=== PATIENT | male | born 1960 | race Caucasian/White ===

== ENCOUNTER 2016-08-18 02:36 | Emergency (ER) | payer BC ==
--- NOTE | 2016-08-18 03:27 | EDM.PDOC ---
ED HPI GENERAL MEDICAL PROBLEM - General Chief Complaint: General Stated Complaint: weakness, fever, chest discomfort Time Seen by Provider: 08/18/16 03:22 Source of Information: Reports: Patient History Limitations: Reports: No limitations - History of Present Illness INITIAL COMMENTS - FREE TEXT/NARRATIVE: 2.5 days of fevers, aches, mild cough. Has about 1 day of mild chest pressure. Onset: other (as above) Location: Reports: generalized Quality: Reports: Ache (all over) Severity: moderate Improves with: Reports: None Worsens with: Reports: None Associated Symptoms: Reports: chest pain (as above), cough, diaphoresis, fever/ chills, weakness. Denies: nausea/vomiting, rash, shortness of breath Chest Pain Score (Numeric/FACES): 1 - Related Data Allergies Allergy/AdvReac Type Severity Reaction Status Date / Time No Known Allergies Allergy Verified 08/18/16 02:38 Home Meds: Home Meds Aspirin [Ecotrin] 81 mg PO DAILY 06/17/16 [History] Past Medical History HEENT History: Reports: Cataract Cardiovascular History: Reports: Pacemaker - Infectious Disease History Infectious Disease History: Reports: Chicken pox, Measles, Mumps - Past Surgical History HEENT Surgical History: Reports: Cataract surgery Social & Family History - Tobacco Use Smoking Status *Q: Former Smoker Years of Tobacco use: 20 Used Tobacco, but Quit: Yes Month Tobacco Last Used: 1 - Caffeine Use Caffeine Use: Reports: Coffee, Energy drinks, Soda, Tea - Recreational Drug Use Recreational Drug Use: No ED ROS GENERAL - Review of Systems Review Of Systems: See Below Constitutional: Reports: fever, chills, fatigue, diaphoresis HEENT: Reports: No symptoms Respiratory: Reports: Cough (dry) Cardiovascular: Reports: Chest pain (mild as above), Other (pacer for occassional slow heart rate. no known CAD). Denies: Palpitations Endocrine: Reports: no symptoms GI/Abdominal: Reports: No symptoms : Reports: no symptoms Musculoskeletal: Reports: other (aches all over) Neurological: Reports: No Symptoms Psychiatric: Reports: No symptoms Hematologic/Lymphatic: Reports: no symptoms Immunologic: Reports: no symptoms ED EXAM, GENERAL - Physical Exam Exam: See Below Exam Limited By: No limitations General Appearance: alert, WD/WN, no apparent distress, other (pale, mild diaphoresis) Eye Exam: bilateral eye: EOMI, PERRL Ears: normal external exam, hearing grossly normal Nose: normal inspection, normal mucosa, no blood Throat/Mouth: Normal inspection, Normal oropharynx (except mild redness) Head: atraumatic, normocephalic Neck: normal inspection, supple, non-tender, full range of motion Respiratory/Chest: no respiratory distress, lungs clear, normal breath sounds, no accessory muscle use Cardiovascular: normal peripheral pulses, regular rate, rhythm, no murmur Peripheral Pulses: 4+: radial (L), radial (R) GI/Abdominal: soft, non tender, no organomegaly, no distention Back Exam: normal inspection, full range of motion. No: CVA tenderness (L), CVA tenderness (R) Extremities: normal range of motion, non-tender, no pedal edema, normal capillary refill Neurological: alert, oriented, CN II-XII intact, normal cognition, normal gait, no motor/sensory deficits Psychiatric: normal affect, normal mood Skin Exam: Warm, No rash, Diaphoretic, Pallor Lymphatic: no adenopathy EKG INTERPRETATION EKG Date: 08/18/16 Time: 02:45 Rhythm: NSR [place]: normal P-wave: present QRS: normal ST-T: normal QT: normal Course - Vital Signs Last Recorded V/S: Last Vital Signs Temp 37.8 C 08/18/16 03:15 Pulse 102 H 08/18/16 03:15 Resp 22 H 08/18/16 03:15 BP 126/69 08/18/16 03:15 Pulse Ox 96 08/18/16 03:15 - Orders/Labs/Meds Orders: Active Orders 24 hr Category Date Time Status Chest 2V [CR] Routine Exams 08/18/16 03:00 Taken Labs: Laboratory Tests 08/18/16 08/18/16 08/18/16 Range/Units 03:00 03:00 03:00 WBC 6.5 (4.0-10.2) K/uL RBC 4.85 (4.33-5.41) M/uL Hgb 14.9 (13.1-16.8) g/dL Hct 42.9 (39.0-49.0) % MCV 88.5 (84.0-98.0) fL MCH 30.7 (28.2-33.3) pg MCHC 34.7 (31.7-36.0) g/dL RDW 13.5 (11.2-14.1) % Plt Count 156 (150-350) K/uL Neut % (Auto) 74.0 (45.0-80.0) % Lymph % (Auto) 8.6 L (10.0-50.0) % [place] % (Auto) 15.1 H (2.0-14.0) % Eos % (Auto) 1.5 (0.0-5.0) % Baso % (Auto) 0.8 (0.0-2.0) % Neut # (Auto) 4.81 (1.40-7.00) K/uL Lymph # (Auto) 0.56 (0.50-3.50) K/uL [place] # (Auto) 0.98 (0.00-1.00) K/uL Eos # (Auto) 0.10 (0.00-0.50) K/uL Baso # (Auto) 0.05 (0.00-0.20) K/uL Sodium 136 (136-145) mmol/L Potassium 3.8 (3.5-5.1) mmol/L Chloride 103 (98-107) mmol/L Carbon Dioxide 23.9 (21.0-32.0) mmol/L BUN 20 H (7-18) mg/dL Creatinine 1.19 H (0.51-1.17) mg/dL Est Cr Clr Drug Dosing TNP Estimated GFR (MDRD) > 60 mL/min Glucose 129 H (74-106) mg/dL Lactic Acid 0.7 (0.4-2.0) mmol/L Calcium 8.0 L (8.5-10.1) mg/dL Total Bilirubin 0.3 (0.2-1.0) mg/dL AST 27 (15-37) U/L ALT 38 (12-78) U/L Alkaline Phosphatase 88 (46-116) IU/L Troponin I 0.000 (0.000-0.056) ng/mL [id number]-[id number] Pept 208 H (0-125) pg/mL Total Protein 7.4 (6.4-8.2) g/dL Albumin 3.6 (3.4-5.0) g/dL - Re-Assessments/Exams Free Text/Narrative Re-Assessment/Exam: 08/18/16 03:32 improved and better color after fluids Departure - Departure Time of Disposition: 03:29 Disposition: Home, Self-Care 01 Condition: good Clinical Impression: Influenza B, Dehydration Forms: ED Department Discharge - Problem List Review Problem List Initiated/Reviewed/Updated: No - My Orders Last 24 Hours: My Active Orders 08/18/16 03:00 Chest 2V [CR] Routine - Assessment/Plan Last 24 Hours: My Active Orders 08/18/16 03:00 Chest 2V [CR] Routine Assessment:: 1. Influenza B 2. negative w/u otherwise 3. Mild Dehydation Plan: 1. Unfortunately patient presents too late for Tamiflu to be of use. 2. Rest, fluids, Advil for aches and fever, tylenol for fever 3. F/U for fevers beyond another 5 days.
[2016-08-18 03:28] LABS: CHLORIDE,CL 103 mmol/L (98-107); SODIUM,NA 136 mmol/L (136-145)
[2016-08-18] MEDS ORDERED: Ibuprofen 600 MG Tab PO ONE (03:43)
[2016-08-18] MEDS ORDERED: Sodium Chloride 0.9% 500 ML IV SCH (03:45)
[2016-08-18] MEDS ORDERED: Sodium Chloride 0.9% 1,000 ML IV ONE (03:53)
[2016-08-18 05:34] VITALS: BP 133/74
== END 2016-08-18 05:00 | disposition home or self-care (01) ==
LOC: LL.ED 02:36
DX: J10.1 Influenza due to other identified influenza virus with other respiratory manifestations (principal); E86.0 Dehydration; Z79.82 Long term (current) use of aspirin; Z87.891 Personal history of nicotine dependence
CPT/HCPCS: 36415; 71020; 80053; 83605; 83880; 84484; 85025; 87804; 93005; 96360; 99284; A9270; J7030; J7040

== ENCOUNTER 2016-08-21 07:49 | Emergency (ER) | payer BC ==
--- NOTE | 2016-08-21 08:29 | EDM.PDOC ---
ED HPI GENERAL MEDICAL PROBLEM - General Chief Complaint: General Stated Complaint: "low grade fever and phlegm cannot cough up" Time Seen by Provider: 08/21/16 08:05 Source of Information: Reports: Patient, Old records ([facility] chart/EMR) History Limitations: Reports: No limitations - History of Present Illness INITIAL COMMENTS - FREE TEXT/NARRATIVE: The patient drove himself to the emergency room for evaluation of persistent and somewhat progressive flu-type symptoms with initial diagnosis of influenza B in this facility on 08/18. The patient has had a productive brownish productive cough since 08/15 with persistent mild fever and chills and temperature of 99.0 at 4 a.m. this morning. He has been taking ibuprofen at 200 mg by mouth every 4 hours when necessary with last dose more than 6 hours ago. He has had some mild GI intolerance to the ibuprofen, although symptoms improve with very occasional OTC antacid use. Patient has not used any other medications including cold and cough preparations, etc.. No recent history of other abdominal pain, heartburn, nausea, diarrhea, melena, gross hematochezia, or any food intolerance, including fatty foods, etc.. He has had some nonspecific bilateral anterior burning of his chest with coughing, however no true pleurisy-type symptoms. The patient denies any other chest pain/pressure, heart flutter, dizziness, orthostasis, orthopnea, diaphoresis, paresthesias, recent decreased exercise tolerance, or any other anginal-type symptoms. Onset: gradual Onset Date: 08/15/16 Duration: Constant, Getting worse Location: Reports: chest. Denies: head, face, neck, abdomen, back, pelvis, upper extremity, left, upper extremity, right Quality: Reports: Burning Severity: mild Improves with: Reports: Rest Worsens with: Reports: Movement (Coughing) Context: Reports: Other (As above) Associated Symptoms: Reports: chest pain (No specific pleurisy), cough w sputum (Brown sputum), fever/chills. Denies: confusion, cough, diaphoresis, headaches , loss of appetite, malaise, nausea/vomiting, rash, seizure, shortness of breath , syncope, weakness Treatments DETASSELER: Reports: NSAIDS. Denies: Other medication(s) Bilateral Lower Anterior Chest Pain Score (Numeric/FACES): 2 - Related Data Allergies Allergy/AdvReac Type Severity Reaction Status Date / Time No Known Allergies Allergy Verified 08/21/16 08:03 Home Meds: Home Meds Aspirin [Ecotrin] 81 mg PO DAILY 06/17/16 [History] Guaifenesin/Pseudoephedrne HCl [Mucinex D ER Tablet] 1 each PO Q12H #20 tab.er.12h 08/21/16 [Rx] Past Medical History HEENT History: Reports: Cataract Cardiovascular History: Reports: Arrhythmia, Hypertension, Pacemaker, Syncope, Other (see below) Other Cardiovascular History: Syncopal episode secondary to short term severe bradycardia and borderline asystole on 01/10/03 with subsequent pacemaker placement in December 2002. hypertension currently not under therapy Respiratory History: Reports: COPD, Sleep apnea, Other (see below) Other Respiratory History: COPD by chest x-ray on 08/21/06. Patient does not use CPAP at home Gastrointestinal History: Reports: GERD Genitourinary History: Reports: Renal calculus Musculoskeletal History: Reports: Osteoarthritis - Infectious Disease History Infectious Disease History: Reports: Chicken pox, Measles, Mumps - Past Surgical History HEENT Surgical History: Reports: Cataract surgery Cardiovascular Surgical History: Reports: Pacer, Other (see below) Other Cardiovascular Surgeries/Procedures: Pacemaker secondary to syncope, etc. as above in December 2002 Social & Family History - Family History Cardiac: Reports: Arrhythmia, Pacemaker, Syncope, Other (see below) Other Cardiac Family History: Father and uncles with history of syncope of unknown etiology with 2 brothers requiring a pacemaker for unknown etiology Endocrine/Metabolic: Reports: Hypothyroidism, Other (see below) Other Endocrine/Metabolic Family History: Mother with goiter - Tobacco Use Smoking Status *Q: Former Smoker Years of Tobacco use: 32 (Smoked cigarettes between ages 17 and 49) Packs/Tins Daily: 1 (Some use of 1.5 packs per day) Used Tobacco, but Quit: Yes Month Tobacco Last Used: As above Smoking Cessation Information Provided To Patient: No - Caffeine Use Caffeine Use: Reports: Coffee (2 cups per day), Soda (6 sodas per day). Denies : Energy drinks (Previous use but not recently), Tea - Alcohol Use Alcohol Use History: No Days Per Week of Alcohol Use: 0 (No previous DWIs, problems with alcohol abuse, etc.) Alcohol Use in Last Twelve Months: No - Recreational Drug Use Recreational Drug Use: No Drug Use in Last 12 Months: No Recreational Drug Type: Denies: Amphetamines (Speed), Cocaine, Heroin, Inhalants (Glues, Solvents, Aerosols), LSD (Acid), Marijuana/Hashish, Methamphetamine, Morphine - Living Situation & Occupation Occupation: employed ([employer]) ED ROS GENERAL - Review of Systems Review Of Systems: See Below Constitutional: Reports: fever, chills, night sweats. Denies: weakness, fatigue , diaphoresis, decreased appetite, weight loss, weight gain HEENT: Reports: Rhinitis (Clear), Throat pain (Minimal). Denies: Contact Lenses , Dental pain, Ear discharge, Ear pain, Eye discharge, Eye pain, Glasses, Sinus problem, Throat swelling, Vertigo, Vision change Respiratory: Reports: Cough, Sputum. Denies: Shortness of Breath, Wheezing, Pleuritic Chest Pain Cardiovascular: Reports: Chest pain (As above). Denies: Blood pressure problem , Claudication, Dyspnea on exertion, Edema, Lightheadedness, Palpitations, PND, Syncope Endocrine: Reports: no symptoms. Denies: fatigue GI/Abdominal: Reports: Abdominal pain (Secondary to NSAIDs). Denies: Anorexia, Black stool, Bloody stool, Constipation, Diarrhea, Decreased appetite, Difficulty swallowing, Distension, Flatus, Hematochezia, Melena, Nausea, Stool incontinence, Vomiting : Reports: no symptoms. Denies: discharge, dysuria, flank pain, frequency, hematuria, incontinence, pain, urgency, urinary retention Musculoskeletal: Reports: no symptoms. Denies: neck pain, shoulder pain, arm pain, back pain, leg pain Skin: Reports: no symptoms. Denies: diaphoresis Neurological: Reports: No Symptoms. Denies: Confusion, Dizziness, Headache, Numbness, Paresthesia, Syncope, Tingling, Weakness Psychiatric: Reports: No symptoms. Denies: Agitation, Anxiety, Confusion, Depression Hematologic/Lymphatic: Reports: no symptoms Immunologic: Reports: no symptoms ED EXAM, GENERAL - Physical Exam Exam: See Below Exam Limited By: No limitations Eye Exam: bilateral eye: EOMI, normal inspection (No nystagmus), PERRL Ears: normal external exam, normal canal, hearing grossly normal, normal TMs Nose: normal inspection, normal mucosa, no blood, clear rhinorrhea (Borderline bilaterally) Throat/Mouth: Normal inspection, Normal lips, Normal teeth, Normal gums, Normal oropharynx, Normal voice, No airway compromise. No: Dysphagia, Inflammation Head: atraumatic, normocephalic. No: facial swelling, facial tenderness, sinus tenderness Neck: normal inspection, supple, non-tender, full range of motion. No: lymphadenopathy (L), lymphadenopathy (R), thyromegaly Respiratory/Chest: no respiratory distress, lungs clear, normal breath sounds, no accessory muscle use, chest non-tender. No: pleural rub, retractions Cardiovascular: normal peripheral pulses, regular rate, rhythm, no edema, no gallop, no JVD, no murmur, no rub. No: gallop/S3, gallop/S4, friction rub Peripheral Pulses: 4+: radial (L), radial (R) GI/Abdominal: normal bowel sounds, soft, non tender, no organomegaly, no distention, no abnormal bruit, no mass, other (Obese). No: guarding (Male) Exam: Deferred Rectal (Males) Exam: Deferred Back Exam: normal inspection, full range of motion. No: CVA tenderness (L), CVA tenderness (R), muscle spasm Extremities: normal inspection, normal range of motion, non-tender, no pedal edema, normal capillary refill. No: pedal edema Neurological: alert, oriented, CN II-XII intact, normal cognition, normal gait, no motor/sensory deficits Psychiatric: normal affect, normal mood Skin Exam: Warm, Dry, Intact, Normal color, No rash. No: Diaphoretic, Ecchymosis Lymphatic: no adenopathy Course - Vital Signs Last Recorded V/S: Last Vital Signs Temp 37.2 C 08/21/16 09:59 Pulse 79 08/21/16 09:59 Resp 20 08/21/16 09:59 BP 122/66 08/21/16 09:59 Pulse Ox 98 08/21/16 09:59 Vital Signs - 24 hr 08/21/16 08/21/16 07:53 09:59 Temperature [ 37.2 C 37.2 C Oral] Pulse, 82 79 Peripheral [ Right Pulse Oximetry] Respiratory 18 20 Rate Blood Pressure 122/76 122/66 [Left Upper Arm ] O2 Sat by Pulse 93 L 98 Oximetry - Orders/Labs/Meds Orders: Active Orders 24 hr Category Date Time Status Chest 2V [CR] Urgent Exams 08/21/16 08:29 Taken CULTURE STREP A CONFIRMATION [RM] Stat Lab 08/21/16 08:29 Results STREP SCRN A RAPID W CULT CONF [RM] Stat Lab 08/21/16 08:29 Results Obtain Past Medical Record [OM.PC] Routine Oth 08/21/16 08:29 Active Labs: Laboratory Tests 08/21/16 08/21/16 Range/Units 08:45 08:45 WBC 5.2 (4.0-10.2) K/uL RBC 4.83 (4.33-5.41) M/uL Hgb 14.9 (13.1-16.8) g/dL Hct 43.5 (39.0-49.0) % MCV 90.1 (84.0-98.0) fL MCH 30.8 (28.2-33.3) pg MCHC 34.3 (31.7-36.0) g/dL RDW 13.5 (11.2-14.1) % Plt Count 168 (150-350) K/uL Neut % (Auto) 66.1 (45.0-80.0) % Lymph % (Auto) 20.5 (10.0-50.0) % [place] % (Auto) 12.6 (2.0-14.0) % Eos % (Auto) 0.6 (0.0-5.0) % Baso % (Auto) 0.2 (0.0-2.0) % Neut # (Auto) 3.42 (1.40-7.00) K/uL Lymph # (Auto) 1.06 (0.50-3.50) K/uL [place] # (Auto) 0.65 (0.00-1.00) K/uL Eos # (Auto) 0.03 (0.00-0.50) K/uL Baso # (Auto) 0.01 (0.00-0.20) K/uL Sodium 141 (136-145) mmol/L Potassium 4.4 (3.5-5.1) mmol/L Chloride 104 (98-107) mmol/L Carbon Dioxide 28.0 (21.0-32.0) mmol/L BUN 16 (7-18) mg/dL Creatinine 1.16 (0.51-1.17) mg/dL Est Cr Clr Drug Dosing TNP Estimated GFR (MDRD) > 60 mL/min Glucose 132 H (74-106) mg/dL Calcium 8.5 (8.5-10.1) mg/dL Total Bilirubin 0.5 (0.2-1.0) mg/dL AST 29 (15-37) U/L ALT 42 (12-78) U/L Alkaline Phosphatase 76 (46-116) IU/L Total Protein 7.4 (6.4-8.2) g/dL Albumin 3.5 (3.4-5.0) g/dL Microbiology 08/21/16 08:29 Group A Streptococcus Rapid Screen - Final Throat NEGATIVE STREP A SCREEN Meds: None - Radiology Interpretation Free Text/Narrative:: Chest x-ray, PA and lateral, shows no evidence of pulmonary infiltrates pneumothorax, cardiomegaly, etc. Mild to moderate COPD changes with probable pulmonary hypertension and possible borderline centralized CHF. Pacemaker noted. Moderate osteoarthritic changes in the thoracic spine Departure - Departure Time of Disposition: 10:15 Disposition: Home, Self-Care 01 Condition: good Clinical Impression: Influenza B, Peptic reflux disease Sleep apnea Qualifiers: Sleep apnea type: other type Qualified Code(s): G47.39 - Other sleep apnea COPD (chronic obstructive pulmonary disease) Qualifiers: COPD type: emphysema Emphysema type: panlobular Qualified Code(s): J43.1 - Panlobular emphysema Hypertension Qualifiers: Hypertension type: essential hypertension Qualified Code(s): I10 - Essential ( primary) hypertension Prescriptions: Guaifenesin/Pseudoephedrne HCl [Mucinex D ER Tablet] 1 each PO Q12H #20 tab.er.12h Instructions: Influenza, Adult, [id number] Referrals: PCP,Unknown [Primary Care Provider] - Forms: ED Department Discharge Additional Instructions: 1. Followup with your regular provider in 7-10 days as directed. 2. Discuss possibility of lung function test/PFTs with regular provider once current symptoms have resolved 3. Strict compliance with CPAP as discussed 4. Congratulations about stopping smoking 5. Yearly influenza boosters as discussed/recommended 6. Work excuse- See Form 7. Hygiene issues as discussed 8. Continue to observe your blood pressures closely through your regular provider 9. Tylenol 650 mg by mouth every 4 hours and/or OTC ibuprofen 2-3 tabs by mouth every 6 hours with food as directed./needed. 10. OTC Prilosec 20 mg by mouth every morning and/or twice a day while on ibuprofen. Consider H. pylori evaluations at followup 11. OTC Sudafed as needed per labeled instructions. - Problem List & Annotations (1) Influenza B SNOMED Code(s): 40313235 Code(s): J10.1 - FLU DUE TO OTH IDENT INFLUENZA VIRUS W OTH RESP MANIFEST Status: Acute Priority: High Current Visit: Yes Onset Date: ~08/15/16 Annotation/Comment:: Leidy work excuse provided with extension of his work excuse until 08/28/16. Various therapeutic options were discussed with the patient not wishing to have IM Depo-Medrol injection at this time. Symptomatic relief as per discharge instructions. Yearly influenza boosters recommended. Hygiene issues discussed. (2) COPD (chronic obstructive pulmonary disease) SNOMED Code(s): 15944723 Code(s): J44.9 - CHRONIC OBSTRUCTIVE PULMONARY DISEASE, UNSPECIFIED Status : Chronic Priority: Medium Current Visit: Yes Onset Date: ~08/21/16 Annotation/Comment:: COPD changes by today's chest x-ray. Stable without current medical therapy. PFTs recommended as per discharge instruction. The patient was congratulated about smoking cessation Qualifiers: COPD type: emphysema Emphysema type: panlobular Qualified Code(s): J43.1 - Panlobular emphysema (3) Hypertension SNOMED Code(s): 05300430 Code(s): I10 - ESSENTIAL (PRIMARY) HYPERTENSION Status: Chronic Priority : Medium Current Visit: Yes Annotation/Comment:: Blood pressures under good control in the emergency room. Continue to observe closely by his regular providers Qualifiers: Hypertension type: essential hypertension Qualified Code(s): I10 - Essential (primary) hypertension (4) Peptic reflux disease SNOMED Code(s): 67351078 Code(s): K21.9 - GASTRO-ESOPHAGEAL REFLUX DISEASE WITHOUT ESOPHAGITIS Status: Acute Priority: Medium Current Visit: Yes Annotation/Comment:: Note mild intolerance to NSAIDs as per today's history. Consider H. pylori, further GI workup, etc. Prilosec coverage while on ibuprofen (5) Sleep apnea SNOMED Code(s): 95741383 Code(s): G47.30 - SLEEP APNEA, UNSPECIFIED Status: Chronic Priority: Medium Current Visit: Yes Annotation/Comment:: Patient has long been noncompliant with his CPAP. Strict compliance with CPAP therapy strongly recommended Qualifiers: Sleep apnea type: other type Qualified Code(s): G47.39 - Other sleep apnea - Problem List Review Problem List Initiated/Reviewed/Updated: Yes - My Orders Last 24 Hours: My Active Orders 08/21/16 08:29 Chest 2V [CR] Urgent CULTURE STREP A CONFIRMATION [RM] Stat STREP SCRN A RAPID W CULT CONF [RM] Stat Obtain Past Medical Record [OM.PC] Routine - Assessment/Plan Last 24 Hours: My Active Orders 08/21/16 08:29 Chest 2V [CR] Urgent CULTURE STREP A CONFIRMATION [RM] Stat STREP SCRN A RAPID W CULT CONF [RM] Stat Obtain Past Medical Record [OM.PC] Routine Assessment:: As above Plan: As above. Extensive precautions were given to the patient, who is in agreement with the treatment plan. See Patient Instructions for further treatment and plan.
[2016-08-21 09:08] LABS: CHLORIDE,CL 104 mmol/L (98-107); SODIUM,NA 141 mmol/L (136-145)
[2016-08-21 10:00] VITALS: BP 122/66
== END 2016-08-21 10:15 | disposition home or self-care (01) ==
LOC: LL.ED 07:49
DX: J11.1 Influenza due to unidentified influenza virus with other respiratory manifestations (principal); Z79.82 Long term (current) use of aspirin; Z95.0 Presence of cardiac pacemaker; J43.1 Panlobular emphysema; G47.30 Sleep apnea, unspecified; M19.90 Unspecified osteoarthritis, unspecified site; K21.9 Gastro-esophageal reflux disease without esophagitis; Z87.891 Personal history of nicotine dependence; I10 Essential (primary) hypertension
CPT/HCPCS: 36415; 71020; 80053; 85025; 87081; 87430; 99284

== ENCOUNTER 2016-08-28 22:36 | Emergency (ER) | payer BC ==
[2016-08-28 22:40] VITALS: BP 125/79
--- NOTE | 2016-08-28 22:47 | EDM.PDOC ---
ED HPI GENERAL MEDICAL PROBLEM - General Chief Complaint: General Stated Complaint: congestion, cough Time Seen by Provider: 08/28/16 22:40 Source of Information: Reports: Patient, Old records ([facility] chart/EMR), Other (Friend/roommate) History Limitations: Reports: No limitations - History of Present Illness INITIAL COMMENTS - FREE TEXT/NARRATIVE: The patient was brought to the emergency room via private automobile by his roommate/friend for evaluation of a sudden onset coughing spell with some secondary gagging but no emesis with symptoms starting at about 20:00 hours this evening. The patient did take 200 mg of ibuprofen and 1 tablet of Mucinex DM about one half hour prior to arrival. Note that he has just recently recovered from an influenza B infection patient essentially nonsymptomatic during the last 3 days. He denies any recent fever or other known exposure to infection. He also did try taking some cough drops earlier this evening. No recent history of abdominal pain, heartburn, nausea, diarrhea, melena, gross hematochezia, or any food intolerance, including fatty foods, etc.. He denies any pain Onset: today, sudden Onset Date: 08/28/16 Onset Time: 20:00 Duration: Intermittent, Improving Improves with: Reports: None Worsens with: Reports: None Context: Reports: Other (As above) Associated Symptoms: Reports: cough. Denies: confusion, chest pain, cough w sputum, diaphoresis, fever/chills, headaches, loss of appetite, malaise, nausea/ vomiting, shortness of breath, weakness - Related Data Allergies Allergy/AdvReac Type Severity Reaction Status Date / Time No Known Allergies Allergy Verified 08/28/16 22:38 Home Meds: Home Meds Aspirin [Ecotrin] 81 mg PO DAILY 06/17/16 [History] guaiFENesin/Dextromethorphan [Mucinex DM ER 1,200-60 MG] 1 tab PO BID 08/28/16 [ History] Past Medical History HEENT History: Reports: Cataract Cardiovascular History: Reports: Arrhythmia, Hypertension, Pacemaker, Syncope, Other (see below) Other Cardiovascular History: Syncopal episode secondary to short term severe bradycardia and borderline asystole on 01/10/03 with subsequent pacemaker placement in December 2002. hypertension currently not under therapy Respiratory History: Reports: COPD, Sleep apnea, Other (see below) Other Respiratory History: COPD by chest x-ray on 08/21/06. Patient does not use CPAP at home Gastrointestinal History: Reports: GERD Genitourinary History: Reports: Renal calculus Musculoskeletal History: Reports: Osteoarthritis - Infectious Disease History Infectious Disease History: Reports: Chicken pox, Measles, Mumps - Past Surgical History HEENT Surgical History: Reports: Cataract surgery Cardiovascular Surgical History: Reports: Pacer, Other (see below) Other Cardiovascular Surgeries/Procedures: Pacemaker secondary to syncope, etc. as above in December 2002 Social & Family History - Family History Cardiac: Reports: Arrhythmia, Pacemaker, Syncope, Other (see below) Other Cardiac Family History: Father and uncles with history of syncope of unknown etiology with 2 brothers requiring a pacemaker for unknown etiology Endocrine/Metabolic: Reports: Hypothyroidism, Other (see below) Other Endocrine/Metabolic Family History: Mother with goiter - Tobacco Use Smoking Status *Q: Former Smoker Years of Tobacco use: 32 (Smoked cigarettes between ages 17 and 49) Packs/Tins Daily: 1 (Some use of 1.5 packs per day) Used Tobacco, but Quit: Yes Month Tobacco Last Used: As above Smoking Cessation Information Provided To Patient: No Second Hand Smoke Exposure: No Second Hand Smoke Education Provided: No - Caffeine Use Caffeine Use: Reports: Coffee (2 cups per day), Soda (6 sodas per day). Denies : Energy drinks (Previous use but not recently), Tea - Alcohol Use Alcohol Use History: No Days Per Week of Alcohol Use: 0 (No previous DWIs, problems with alcohol abuse, etc.) Alcohol Use in Last Twelve Months: No - Recreational Drug Use Recreational Drug Use: No Drug Use in Last 12 Months: No Recreational Drug Type: Denies: Amphetamines (Speed), Cocaine, Inhalants (Glues , Solvents, Aerosols), LSD (Acid), Marijuana/Hashish, Methamphetamine, Morphine - Living Situation & Occupation Living situation: Reports: other (With a roommate) Occupation: employed ([employer] [facility] - Review of Systems Review Of Systems: See Below Constitutional: Reports: no symptoms. Denies: fever, chills, malaise, weakness , fatigue, night sweats, diaphoresis, decreased appetite, weight loss, weight gain HEENT: Reports: Rhinitis. Denies: Dental pain, Ear discharge, Ear pain, Eye pain, Nosebleed, Sinus problem, Throat swelling, Vertigo, Vision change Respiratory: Reports: Cough. Denies: Shortness of Breath, Wheezing, Pleuritic Chest Pain, Sputum, Hemoptysis Cardiovascular: Denies: Chest pain, Blood pressure problem, Claudication, Dyspnea on exertion, Edema, Lightheadedness, Orthopnea, Palpitations, PND, Syncope Endocrine: Reports: no symptoms. Denies: fatigue GI/Abdominal: Reports: No symptoms. Denies: Abdominal pain, Anorexia, Black stool, Bloody stool, Constipation, Diarrhea, Decreased appetite, Difficulty swallowing, Distension, Flatus, Hematochezia, Melena, Nausea, Stool incontinence , Vomiting : Reports: no symptoms. Denies: discharge, flank pain, frequency, hematuria, incontinence, pain, urgency Musculoskeletal: Reports: no symptoms. Denies: neck pain, shoulder pain, arm pain, back pain, leg pain Skin: Reports: no symptoms. Denies: diaphoresis, rash, wound Neurological: Reports: No Symptoms. Denies: Confusion, Dizziness, Headache, Paresthesia, Seizure, Tingling, Weakness Psychiatric: Reports: Anxiety. Denies: Depression, Hallucinations, Suicidal ideation Hematologic/Lymphatic: Reports: no symptoms. Denies: anemia Immunologic: Reports: no symptoms ED EXAM, GENERAL - Physical Exam Exam: See Below Exam Limited By: No limitations General Appearance: alert, WD/WN, no apparent distress, anxious (Mild) Eye Exam: bilateral eye: EOMI, normal inspection (No nystagmus), PERRL Ears: normal external exam, normal canal, hearing grossly normal, normal TMs Nose: normal mucosa, no blood, clear rhinorrhea. No: nasal tenderness Throat/Mouth: Normal inspection, Normal lips, Normal teeth, Normal gums, Normal oropharynx, Normal voice, No airway compromise. No: Dysphagia, Inflammation, Perioral cyanosis Head: atraumatic, normocephalic. No: facial swelling, facial tenderness, sinus tenderness Neck: normal inspection, supple, non-tender, full range of motion. No: lymphadenopathy (L), lymphadenopathy (R), thyromegaly Respiratory/Chest: no respiratory distress, lungs clear, normal breath sounds, no accessory muscle use, chest non-tender. No: pleural rub, retractions Cardiovascular: normal peripheral pulses, regular rate, rhythm, no edema, no gallop, no JVD, no murmur, no rub. No: gallop/S3, gallop/S4, friction rub Peripheral Pulses: 4+: radial (L), radial (R) GI/Abdominal: normal bowel sounds, soft, non tender, no organomegaly, no distention, no abnormal bruit, no mass. No: guarding (Male) Exam: Deferred Rectal (Males) Exam: Deferred Back Exam: normal inspection, full range of motion. No: CVA tenderness (L), CVA tenderness (R), muscle spasm Extremities: normal inspection, normal range of motion, non-tender, no pedal edema, normal capillary refill. No: Ruddy's Sign Neurological: alert, oriented, CN II-XII intact, normal cognition, normal gait, no motor/sensory deficits Psychiatric: anxious (Mild to moderate). No: depressed mood Skin Exam: Warm, Dry, Intact, Normal color, No rash. No: Diaphoretic, Rash, Wound/incision Lymphatic: no adenopathy Course - Vital Signs Last Recorded V/S: Last Vital Signs Temp 36.6 C 08/28/16 22:38 Pulse 80 08/28/16 22:38 Resp 20 08/28/16 22:38 BP 125/79 08/28/16 22:38 Pulse Ox 99 08/28/16 22:38 Vital Signs - 24 hr 08/28/16 22:38 Temperature [ 36.6 C Oral] Pulse, 80 Peripheral [ Right Brachial] Respiratory 20 Rate Blood Pressure 125/79 [Right Upper Arm] O2 Sat by Pulse 99 Oximetry - Orders/Labs/Meds Orders: Active Orders 24 hr Category Date Time Status Peripheral IV Care [RC] . DIRECTED Care 08/28/16 22:48 Inactive Obtain Past Medical Record [OM.PC] Routine Oth 08/28/16 23:08 Active Labs: None Meds: Medications Discontinued Medications Generic Name Dose Route Start Last Admin Trade Name Freq PRN Reason Stop Dose Admin Insulin Human Regular 100 unit 100 mls @ 08/28/16 22:49 / Sodium Chloride IV TITRATE JUHI Protocol 0.1 UNIT/KG/HR Sodium Chloride 10 ml 08/28/16 22:48 Saline Flush FLUSH ASDIRECTED PRN Keep Vein Open No meds given. The medications listed above incorrectly ordered for this patient and actually given to the other patient in the emergency room - Radiology Interpretation Free Text/Narrative:: None Departure - Departure Time of Disposition: 23:30 Disposition: Home, Self-Care 01 Condition: good Clinical Impression: Peptic reflux disease, Bronchitis, Mixed anxiety depressive disorder, Tobacco abuse counseling COPD (chronic obstructive pulmonary disease) Qualifiers: COPD type: COPD with acute lower respiratory infection Qualified Code(s): J44.0 - Chronic obstructive pulmonary disease with acute lower respiratory infection Sleep apnea Qualifiers: Sleep apnea type: unspecified type Qualified Code(s): G47.30 - Sleep apnea, unspecified Hypertension Qualifiers: Hypertension type: essential hypertension Qualified Code(s): I10 - Essential ( primary) hypertension Instructions: Upper Respiratory Infection, Adult, [id number] Referrals: PCP,None [Primary Care Provider] - Forms: ED Department Discharge Additional Instructions: 1. Follow up with your regular provider in 10-14 days as needed, if symptoms persist. 2. Listerine gargles four times per day, after meals and at bedtime, with additional Chloroseptic lozenges or spray as needed for 10 days and/or until symptoms resolve. 3. Tylenol 650 mg by mouth every 4 hours and/or OTC ibuprofen 2-3 tabs by mouth every 6 hours with food as directed./needed. 4. Stop all tobacco use TANYA as directed/per provided information and consider contacting Quit LIne, etc.. 5. Hygiene issues as discussed 6. Discuss your anxiety with your regular provider with consideration of medical therapy, etc. - Problem List & Annotations (1) Bronchitis SNOMED Code(s): 51891267 Code(s): J40 - BRONCHITIS, NOT SPECIFIED ACUTE OR CHRONIC Status: Acute Priority: High Onset Date: ~08/28/16 Annotation/Comment:: Likely mild viral bronchitis with recent influenza B as above. Various therapeutic options were given to the patient, who agrees to delay further repeat blood work, chest x-ray, etc. at this time. Continue Mucinex DM with symptomatic with it as per discharge instructions (2) Sleep apnea SNOMED Code(s): 14056630 Code(s): G47.30 - SLEEP APNEA, UNSPECIFIED Status: Chronic Priority: Medium Annotation/Comment:: Patient has long been noncompliant with his CPAP. Strict compliance with CPAP therapy once again strongly recommended Qualifiers: Sleep apnea type: unspecified type Qualified Code(s): G47.30 - Sleep apnea , unspecified (3) COPD (chronic obstructive pulmonary disease) SNOMED Code(s): 29033853 Code(s): J44.9 - CHRONIC OBSTRUCTIVE PULMONARY DISEASE, UNSPECIFIED Status : Chronic Priority: Medium Onset Date: ~08/21/16 Annotation/Comment:: COPD changes by previous chest x-ray. Stable without current medical therapy. PFTs once again recommended on an outpatient basis Qualifiers: COPD type: COPD with acute lower respiratory infection Qualified Code(s): J44.0 - Chronic obstructive pulmonary disease with acute lower respiratory infection (4) Peptic reflux disease SNOMED Code(s): 67873709 Code(s): K21.9 - GASTRO-ESOPHAGEAL REFLUX DISEASE WITHOUT ESOPHAGITIS Status: Acute Priority: Medium Annotation/Comment:: Stable by history (5) Hypertension SNOMED Code(s): 91307376 Code(s): I10 - ESSENTIAL (PRIMARY) HYPERTENSION Status: Chronic Priority : Medium Annotation/Comment:: Blood pressures under good control in the emergency room. Continue to observe closely by his regular providers Qualifiers: Hypertension type: essential hypertension Qualified Code(s): I10 - Essential (primary) hypertension (6) Mixed anxiety depressive disorder SNOMED Code(s): 504011787 Code(s): F41.8 - OTHER SPECIFIED ANXIETY DISORDERS Status: Chronic Priority: Medium Onset Date: ~08/28/16 Annotation/Comment:: Patient admits to some anxiety and borderline depression. Emotional support provided. He was strongly recommended to discuss this further with his regular provider with possible medical therapy, counseling, etc. (7) Tobacco abuse counseling SNOMED Code(s): 602798635, 072649337, 385479637 Code(s): Z71.6 - TOBACCO ABUSE COUNSELING Status: Chronic Priority: Medium Annotation/Comment:: Tobacco cessation strongly encouraged with information provided - Problem List Review Problem List Initiated/Reviewed/Updated: Yes - My Orders Last 24 Hours: My Active Orders 08/28/16 22:48 Peripheral IV Care [RC] . DIRECTED 08/28/16 23:08 Obtain Past Medical Record [OM.PC] Routine - Assessment/Plan Last 24 Hours: My Active Orders 08/28/16 22:48 Peripheral IV Care [RC] . DIRECTED 08/28/16 23:08 Obtain Past Medical Record [OM.PC] Routine Assessment:: As above Plan: As above. Extensive precautions were given to the patient and his roommate, who are in agreement with the treatment plan. See Patient Instructions for further treatment and plan.
[2016-08-28] MEDS ORDERED: Sodium Chloride 0.9% 10 ML Syringe FLUSH PRN (22:48)
== END 2016-08-28 23:00 | disposition home or self-care (01) ==
LOC: LL.ED 22:36
DX: J44.0 Chronic obstructive pulmonary disease with (acute) lower respiratory infection (principal); J40 Bronchitis, not specified as acute or chronic; K21.9 Gastro-esophageal reflux disease without esophagitis; I10 Essential (primary) hypertension; F41.8 Other specified anxiety disorders; G47.30 Sleep apnea, unspecified; Z87.891 Personal history of nicotine dependence; Z87.442 Personal history of urinary calculi; Z79.899 Other long term (current) drug therapy; Z98.49 Cataract extraction status, unspecified eye
CPT/HCPCS: 99283

== ENCOUNTER 2022-02-14 16:41 | Emergency (ER) | payer BC ==
[2022-02-14] MEDS ORDERED: Sodium Chloride 0.9% 10 ML Syringe FLUSH PRN (16:48)
[2022-02-14] MEDS ORDERED: Meclizine 25 MG Tab PO ONE (16:52)
[2022-02-14] MEDS ORDERED: LORazepam 2 MG/ML SDV IVPUSH ONE (16:52)
[2022-02-14 17:26] LABS: ANION GAP 8.8 meq/L (7-15); CHLORIDE,CL 106 mmol/L (98-107); ESTIMATED GFR 66 mL/min (>=60); SODIUM,NA 142 mmol/L (136-145)
[2022-02-14 18:09] VITALS: PULSE 77
[2022-02-14 19:09] VITALS: BP 125/61
== END 2022-02-14 18:40 | disposition home or self-care (01) ==
LOC: LL.ED 16:41
DX: R42 Dizziness and giddiness (principal); I10 Essential (primary) hypertension; K21.9 Gastro-esophageal reflux disease without esophagitis; J44.9 Chronic obstructive pulmonary disease, unspecified
CPT/HCPCS: 36415; 70450; 80053; 82947; 83735; 84484; 85025; 93005; 93010; 96374; 99284; 99284-25; A9270-GY; J2060

== ENCOUNTER 2022-08-10 09:48 | Day surgery (SDC) | payer BC ==
[~2022-08-10 09:48] MED LIST: Propofol 200 MG/20 ML SDV ONE; Sodium Chloride 0.9% 10 ML Syringe FLUSH PRN
[2022-08-10] MEDS ORDERED: Lactated Ringers 1,000 ML IV SCH (10:00)
[2022-08-10] MEDS ORDERED: Propofol 200 MG/20 ML SDV ONE (12:19)
[2022-08-10 17:37] VITALS: BP 112/70; PULSE 70
== END 2022-08-10 13:19 | disposition home or self-care (01) ==
LOC: LL.SDS 09:48
PROVIDERS: ATTEND Surgery
DX: Z12.11 Encounter for screening for malignant neoplasm of colon (principal); D12.2 Benign neoplasm of ascending colon; K57.30 Diverticulosis of large intestine without perforation or abscess without bleeding; J44.9 Chronic obstructive pulmonary disease, unspecified; G47.30 Sleep apnea, unspecified; K21.9 Gastro-esophageal reflux disease without esophagitis; M19.90 Unspecified osteoarthritis, unspecified site; Z91.048 Other nonmedicinal substance allergy status; Z79.82 Long term (current) use of aspirin; Z87.891 Personal history of nicotine dependence
CPT/HCPCS: 00812; J2704; J7120

== ENCOUNTER 2024-09-08 18:05 | Emergency (ER) | payer BC ==
[2024-09-08 18:59] LABS: BASOPHILS ABSOLUTE AUTO 0.04 K/uL (0.00-0.20); BASOPHILS PERCENT AUTO 0.4 % (0.0-2.0); EOSINOPHILS ABSOLUTE AUTO 0.19 K/uL (0.00-0.50); EOSINOPHILS PERCENT AUTO 1.7 % (0.0-5.0); HEMATOCRIT 47.2 % (39.0-49.0); HEMOGLOBIN 16.8 g/dL (13.1-16.8); IMMATURE GRAN ABSOLUTE AUTO 0.02 10^3/uL (0.00-0.04); IMMATURE GRAN PERCENT AUTO 0.2 % (0.0-0.4); LYMPHOCYTES ABSOLUTE AUTO 0.65 K/uL (0.50-3.50); LYMPHOCYTES PERCENT AUTO 5.8 % (10.0-50.0); MEAN CORPUSCULAR HGB CONC 35.6 g/dL (31.7-36.0); MEAN CORPUSCULAR VOLUME 87.1 fL (84.0-98.0); MONOCYTES PERCENT AUTO 4.5 % (2.0-14.0); NEUTROPHILS ABSOLUTE AUTO 9.74 K/uL (1.40-7.00); NEUTROPHILS PERCENT AUTO 87.4 % (45.0-80.0); PLATELET COUNT,PLT 190 K/uL (150-350); RED BLOOD CELL COUNT 5.42 M/uL (4.33-5.41); RED CELL DISTRIBUTION WIDTH 12.5 % (11.2-14.1); WHITE BLOOD CELL COUNT,WBC 11.1 K/uL (4.0-10.2)
[2024-09-08 18:59] LABS: INR 1.1 (0.9-1.1); PROTHROMBIN TIME 10.7 SEC (9.0-11.1)
[2024-09-08 19:02] LABS: ALBUMIN 3.9 g/dL (3.4-5.0); ANION GAP 11.1 meq/L (7-15); BILIRUBIN TOTAL 0.7 mg/dL (0.2-1.0); CALCIUM 8.7 mg/dL (8.5-10.1); CARBON DIOXIDE,CO2 23.9 mmol/L (21.0-32.0); CREATININE 1.35 mg/dL (0.51-1.17); EST CRCL DRUG DOSING (CG) 63.43 mL/min; POTASSIUM,K 4.2 mmol/L (3.5-5.1); PROTEIN TOTAL,TP 7.8 g/dL (6.4-8.2)
[2024-09-08 19:17] LABS: TSH ULTRASENSITIVE 1.277 mIU/mL (0.358-3.740)
[2024-09-08] MEDS: Lactated Ringers 1,000 ML IV ONE (19:53)
[2024-09-08] MEDS: Diltiazem 25 MG/5 ML SDV IVPUSH ONE (21:02)
[2024-09-08] MEDS: Sodium Chloride 0.9% 10 ML Syringe FLUSH PRN (21:06)
[2024-09-08] MEDS: Apixaban 5 MG Tab PO ONE (21:42)
[2024-09-08 22:23] VITALS: BP 108/62; PULSE 100
== END 2024-09-08 22:00 | disposition home or self-care (01) ==
LOC: LL.ED 18:05
DX: I48.91 Unspecified atrial fibrillation (principal); J44.9 Chronic obstructive pulmonary disease, unspecified; Z91.048 Other nonmedicinal substance allergy status; Z79.01 Long term (current) use of anticoagulants; Z79.899 Other long term (current) drug therapy; Z95.0 Presence of cardiac pacemaker
CPT/HCPCS: 36415; 80053; 83735; 84443; 84484; 85025; 85610; 87428-QW; 93010; 96361; 96374; 99284; 99285-25; A9270-GY; J3490; J7120